=== PATIENT | male | born 2000 | race Caucasian/White ===

== ENCOUNTER 2021-02-22 21:54 | Emergency (ER) | payer MEDICAID, SELFPAY ==
[2021-02-22 22:30] VITALS: BP 137/58; PULSE 76; RESP 18; TEMP 36.8; O2SAT 100; BMI 20.7
[2021-02-22 23:51] LABS: Influenza A PCR NEGATIVE (Negative); Influenza B PCR NEGATIVE (Negative); Resp Syncy Virus RNA Qual PCR NEGATIVE (Negative); SARS COV2 PCR INHOUSE NEGATIVE (Negative)
--- NOTE | 2021-02-23 00:03 | ED.URI ---
HPI - URI/Sore Throat General Chief Complaint: Upper Respiratory Symptoms Stated Complaint: flu like Time Seen by Provider: 02/22/21 23:23 Source: patient Mode of arrival: ambulatory Limitations: no limitations History of Present Illness HPI Narrative: 20 y/o male presenting to the ER from home c/o dry cough for the last 10 days. He reports coughing fits so bad that his cough causes him to vomit. He is not nauseated when he's not coughing and he has no abdominal pain. He has no fever or chills. No sputum production with his cough. He has been taking OTC cough medication with no improvement. He presents with his girlfriend who is having similar symptoms. He is not vaccinated against COVID. MD elicited complaint: cough Onset (ago): day(s) (10) Consistency: intermittent Severity: severe Description of mucous: clear Able to tolerate fluids by mouth: Yes Exacerbating factors: nothing Relieving factors: OTC cold medicine Context: sick contacts Associated symptoms: voice changes, headache, nasal congestion, sore throat and cough Treatments prior to arrival: none Related Data Previous Rx's Medication Instructions Recorded benzonatate 100 mg capsule 100 mg PO TID PRN #14 cap 02/23/21 (Tessalon Perles) hydrocodone-homatropine 5 mg-1.5 5 ml PO Q4-6H PRN #60 ml 02/23/21 mg/5 mL (5 mL) oral syrup (Hycodan) Allergies Allergy/AdvReac Type Severity Reaction Status Date / Time acetaminophen [From NyQuil] Allergy Rash Verified 02/22/21 22:32 dextromethorphan Allergy Rash Verified 02/22/21 22:32 [From NyQuil] doxylamine [From NyQuil] Allergy Rash Verified 02/22/21 22:32 pseudoephedrine [From NyQuil] Allergy Rash Verified 02/22/21 22:32 Review of Systems Review of Systems: Constitutional: No Fever, No Chills ENT/Mouth: + sore throat, No Rhinorrhea, No Swallowing Difficulty Eyes: No Eye Pain, No Swelling, No Redness Cardiovascular: No Chest Pain, No SOB, No Orthopnea, No Edema Respiratory: + Cough, No Sputum, No Wheezing, No dyspnea Gastrointestinal: No Nausea, + Vomiting, No Diarrhea, No abdominal Pain, Genitourinary: No Dysuria, No Urinary Frequency, No Hematuria Musculoskeletal: No joint pain, + Myalgias Skin: No Skin Lesions, No rash Neuro: No Weakness, No Numbness, No Dizziness, + Headache Heme/Lymph: No Bruising, No Lymphadenopathy Endocrine: No Polyuria, No Polydipsia [facility] Past Medical History Medical History (Updated 02/23/21 @ 00:03 by BERNA Pemberton) Inactive asthma Social History Social History Advance Directives: No Advance Directives Information Provided: Yes Physical Exam Vital Signs: Vital Signs: Last Vital Signs Temp 98.2 F 02/22/21 22:30 Pulse 76 02/22/21 22:30 Resp 18 02/22/21 22:30 BP 137/58 L 02/22/21 22:30 Pulse Ox 100 02/22/21 22:30 Body Mass Index 20.7 Appearance: Alert. Oriented X3. No acute distress. Eyes: Pupils equal, round and reactive to light. ENT: Pharynx normal. Neck: Normal inspection. Neck supple. CVS: Normal heart rate and rhythm. Pulses normal. Respiratory: No respiratory distress. Breath sounds normal. Abdomen: Soft and nontender. +BS x4 Skin: Skin warm and dry. Normal skin color. Normal skin turgor. No rashes. Extremities: No lower extremity edema. No calf tenderness Neuro: Oriented X 3. No motor deficit. No sensory deficit. Course Course Course Narrative: 20 y/o male presenting with 10 days of dry cough, post-tussive emesis intermittently over the last few days. VS are stable and exam is benign. COVID/Flu/RSV swab is negative. Will start antitussive and d/c home with supportive care. MDM - URI/Sore Throat Lab Data Labs: Lab Results 02/22/21 Range/Units 22:58 Coronavirus (PCR) NEGATIVE (Negative) Influenza Type A (PCR) NEGATIVE (Negative) Influenza Type B (PCR) NEGATIVE (Negative) RSV RNA Qual (PCR) NEGATIVE (Negative) Critical Care Time Critical Care Time Critical Care Time: No Discharge Plan Discharge Clinical Impression: Viral infection Patient Disposition: Home, Self-Care Instructions: Viral Syndrome (ED) Additional Instructions: You are NEGATIVE for COVID-19. Your vital signs and oxygen levels were normal. Rest. Drink plenty of fluids. Take the prescribed cough medication as directed. Take over the counter cold/flu medications as needed for your symptoms. Take Tylenol and/or Motrin as needed for fevers and body aches. Follow up with your doctor this week. If you develop new or worsening symptoms call 911 or come back to the ER for further evaluation. Prescriptions: New hydrocodone-homatropine [Hycodan] 5-1.5 mg/5 mL (5 mL) syrup 5 ml PO Q4-6H PRN (Reason: cough) Qty: 60 RF: 0 benzonatate [Tessalon Perles] 100 mg capsule 100 mg PO TID PRN (Reason: cough) Qty: 14 RF: 0 Stand Alone Forms: Work/School Release
[2021-02-23] MEDS: guaiFEN/Codeine SF 200/20/10ML 10 ML LIQUID PO (00:38)
== END 2021-02-23 00:41 | disposition home or self-care (01) ==
PROVIDERS: Emergency Provider Internal Medicine
DX: B34.9 Viral infection, unspecified (principal); Z20.822 Contact with and (suspected) exposure to COVID-19; R05 Cough
CPT/HCPCS: 0241U; 36415; 99283